=== PATIENT | female | born 1935 | race Caucasian/White ===

== ENCOUNTER → 2017-04-08 | Outpatient (CLI) | payer OTHER ==
[~2017-04-08] MED LIST: ACIDOPHILUS1 EAC3 PO; CLOPIDOGREL75 MG PO; COENZYME Q10100 MG PO; CRESTOR10 MG PO; DOK100 MG PO; LEVAQUIN 500 M500 M2 PO; LOPRESSOR100 M1 PO; MECLIZINE HCL12.5 MG PO; NAMENDA 10 MG T10 MG PO; PEPCID20 MG PO; POLYETHYLENE GL17 GM PO; TRAMADOL 50 MG50 MG PO; TYLENOL325 MG PO; VENTOLIN HFA 1818 GM INH; VITAMIN D32000 UNIT PO
== END ==
LOC: CAT 08:59
DX: R91.1 Solitary pulmonary nodule (principal)